=== PATIENT | female | born 1935 | race Caucasian/White ===

== ENCOUNTER → 2018-05-21 11:41 | Outpatient (CLI) | payer MEDICARE, SELFPAY ==
--- NOTE | 2018-05-21 | DI.MG.S_ITS ---
BILATERAL DIGITAL SCREENING MAMMOGRAM 3D/2D WITH CAD: 05/21/2018 CLINICAL: Routine screening. Comparison is made to exams dated: 12/09/2016 mammogram, 12/03/2015 mammogram, and 12/01/2014 mammogram - [facility]. The tissue of both breasts is heterogeneously dense. This may lower the sensitivity of mammography. Current study was also evaluated with a Computer Aided Detection (CAD) system. No significant masses, calcifications, or other findings are seen in either breast. There has been no significant interval change. IMPRESSION: NEGATIVE There is no mammographic evidence of malignancy. A 1 year screening mammogram is recommended. This exam was interpreted at Station ID: [id number]. NOTE: For mammograms, a report in lay terms will be sent to the patient. Approximately 15% of breast malignancies will not be visualized mammographically. In the management of a palpable breast mass, a negative mammogram must not discourage biopsy of a clinically suspicious lesion. Electronically Signed By: Francisca ewst/phill:05/21/2018 14:52:28 copy to: ELIAS NICOLE letter sent: Normal Exam ACR BI-RADS Category 1: Negative 3341F
== END ==
PROVIDERS: Family Provider Physician Assistant; PCP Physician Assistant; Visit Provider Physician Assistant
DX: Z12.31 Encounter for screening mammogram for malignant neoplasm of breast (principal)
CPT/HCPCS: 77063; 77067

== ENCOUNTER → 2019-05-24 13:01 | Outpatient (CLI) | payer MEDICARE, SELFPAY ==
--- NOTE | 2019-05-24 | DI.MG.S_ITS ---
BILATERAL DIGITAL SCREENING MAMMOGRAM 3D/2D WITH CAD: 05/24/2019 CLINICAL: Routine screening. Comparison is made to exams dated: 05/21/2018 mammogram, 12/09/2016 mammogram, 12/03/2015 mammogram, 12/01/2014 mammogram, and 11/06/2013 mammogram - [facility]. The tissue of both breasts is heterogeneously dense. This may lower the sensitivity of mammography. Current study was also evaluated with a Computer Aided Detection (CAD) system. There is an irregular equal density focal asymmetry in the left breast at 8 o'clock anterior to middle depth. This is more prominent. There is possible architectural distortion associated with the focal asymmetry. No other significant masses, calcifications, or other findings are seen in either breast. IMPRESSION: INCOMPLETE: NEEDS ADDITIONAL IMAGING EVALUATION Focal asymmetry with possible architectural distortion in the left breast is indeterminate. Additional views as well as additional views with possible ultrasound are recommended. This exam was interpreted at Station ID: [id number]. NOTE: For mammograms, a report in lay terms will be sent to the patient. Approximately 15% of breast malignancies will not be visualized mammographically. In the management of a palpable breast mass, a negative mammogram must not discourage biopsy of a clinically suspicious lesion. Electronically Signed By: Ty Braun M.D. slc/:05/24/2019 16:41:59 copy to: ELIAS NICOLE letter sent: Additional Imaging Needed ACR BI-RADS Category 0: Incomplete 3340F
== END ==
PROVIDERS: PCP Student in an Organized Health Care Education/Training Program; Visit Provider Student in an Organized Health Care Education/Training Program
DX: Z12.31 Encounter for screening mammogram for malignant neoplasm of breast (principal)
CPT/HCPCS: 77063; 77067

== ENCOUNTER → 2019-06-14 08:28 | Outpatient (CLI) | payer MEDICARE, SELFPAY ==
--- NOTE | 2019-06-14 | DI.US.S_ITS ---
LIMITED ULTRASOUND OF LEFT BREAST AND AXILLA: 06/14/2019 CLINICAL: Additional evaluation requested from prior study. Comparison is made to exams dated: 06/14/2019 mammogram, 05/24/2019 mammogram, 05/21/2018 mammogram, 12/09/2016 mammogram, and 12/03/2015 mammogram - [facility]. Color flow and real-time ultrasound of the left breast 9 o'clock, and axilla regions were performed on the areas of interest. There is a 0.8 cm x 0.6 cm x 0.8 cm oval mass with a spiculated margin in the left breast at 9 o'clock posterior depth. This oval mass is hypoechoic with posterior acoustic shadowing. This correlates with mammography findings. Color flow imaging demonstrates that there is vascularity present. No significant abnormalities were seen sonographically in the left axilla. No lymphadenopathy by size criteria. IMPRESSION: HIGHLY SUGGESTIVE OF MALIGNANCY The 0.8 cm x 0.6 cm x 0.8 cm oval mass in the left breast is highly suggestive of malignancy. An ultrasound guided biopsy is recommended. The findings were discussed with the patient at the conclusion of the study by Dr. Winters. This exam was interpreted at Station ID: [id number]. Electronically Signed By: José pena/:06/14/2019 14:54:03 letter sent: Biopsy Required Ultrasound BI-RADS: 5 Highly suggestive of malignancy
--- NOTE | 2019-06-14 | DI.MG.S_ITS ---
UNILATERAL LEFT DIGITAL DIAGNOSTIC MAMMOGRAM 3D/2D WITH ADDITIONAL VIEWS: 06/14/2019 CLINICAL: Additional evaluation requested from prior study. Comparison is made to exams dated: 05/24/2019 mammogram, 05/21/2018 mammogram, and 12/09/2016 mammogram - [facility]. The tissue of left breast is heterogeneously dense. This may lower the sensitivity of mammography. There is a 0.8 cm irregular equal density focal asymmetry with a spiculated and indistinct margin in the left breast at 9 o'clock middle depth. No other significant masses or calcifications are seen in the breast. IMPRESSION: INCOMPLETE: NEEDS ADDITIONAL IMAGING EVALUATION The 0.8 cm irregular equal density focal asymmetry in the left breast is indeterminate. An ultrasound is recommended. This exam was interpreted at Station ID: [id number]. NOTE: For mammograms, a report in lay terms will be sent to the patient. Approximately 15% of breast malignancies will not be visualized mammographically. In the management of a palpable breast mass, a negative mammogram must not discourage biopsy of a clinically suspicious lesion. Electronically Signed By: José pena/phill:06/14/2019 09:15:49 ACR BI-RADS Category 0: Incomplete 3340F
== END ==
PROVIDERS: PCP Student in an Organized Health Care Education/Training Program; Visit Provider Student in an Organized Health Care Education/Training Program
DX: R92.8 Other abnormal and inconclusive findings on diagnostic imaging of breast (principal); N63.20 Unspecified lump in the left breast, unspecified quadrant; M85.852 Other specified disorders of bone density and structure, left thigh; Z78.0 Asymptomatic menopausal state; E07.9 Disorder of thyroid, unspecified; Z87.891 Personal history of nicotine dependence
CPT/HCPCS: 76642; 77065; 77080; G0279

== ENCOUNTER → 2019-06-25 08:42 | Outpatient (CLI) | payer MEDICARE, SELFPAY ==
--- NOTE | 2019-06-25 | DI.US.S_ITS ---
ULTRASOUND GUIDED BIOPSY LEFT BREAST USING VACUUM DEVICE WITH MARKING DEVICE INSERTED AND POST ULTRASOUND IMAGIN06/25/2019 CLINICAL: Left breast mass. PATIENT CONSENT: Risks (minor bleeding, infection, vasovagal reaction and repeat procedure), benefits and alternatives were explained to the patient and written informed consent was obtained. Correlation is made to exams dated: 06/14/2019 ultrasound, 06/14/2019 mammogram, 05/24/2019 mammogram, and 05/21/2018 mammogram - [facility]. An ultrasound guided biopsy using real-time ultrasound was performed for the concerning 0.8 cm x 1 cm x 0.9 cm taller than wide circumscribed spiculated irregular shaped solid mass located in the left breast at 3 o'clock middle depth. This was described on the previous mammography and ultrasound reports. The skin was prepped in the usual manner. Local anesthetic was administered to the access site. A skin nakia was made in the breast. The abnormality was approached from the lateral aspect. A 13 gauge biopsy needle was placed adjacent to the abnormality under ultrasound guidance. Once the needle was documented to be in the correct location, seven specimens were obtained using the Mammotome biopsy system. The patient received additional local anesthetic during the procedure. A Vision clip was inserted into the biopsy cavity. A skin closure strip and a sterile dressing were applied to the access site. Post procedure ultrasound imaging demonstrates the location device at the targeted area and partial removal of the abnormality. The specimens were sent to the laboratory for pathological analysis. IMPRESSION: ULTRASOUND GUIDED BIOPSY MALIGNANT Ultrasound guided biopsy of the 0.8 cm x 1 cm x 0.9 cm taller than wide solid mass in the left breast at 3 o'clock middle depth was successful. 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 Pathology results are concordant with imaging findings. The patient will be returned for post-marker placement mammogram in several days. The mammography equipment was unable to obtain a diagnostic image of the site of biopsy due to a technical issue at completion of the exam. This exam was interpreted at Station ID: [id number]. Ultrasound guided biopsy of the 0.8 cm x 1 cm x 0.9 cm taller than wide solid mass in the left breast at 3 o'clock middle depth was successful. This exam was interpreted at Station ID: [id number]. Artur Mitchell M.D. [facility],/:06/28/2019 16:37:32
--- NOTE | 2019-06-25 | PATH_ITS ---
[facility] Accession Number: [id number] . 01 Material submitted: . breast - LEFT BREAST MASS 9:00 5 CM FN . 01 Clinical history: . MASS LEFT BREAST . 02 Diagnosis: Left Breast Mass at 9 o'clock, 5 cm from Nipple: Invasive mammary carcinoma with the following characteristics. Tumor size: At least 3 mm in greatest length. 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 Histologic grade: Intermediate grade (2 of 3). Modified Salmeron-Leonard score: 6 of 9. Tubular score: 3 of 3. Nuclear score: 2 of 3 Mitotic score: 1 of 3. In situ carcinoma: One minute focus (less than 1 mm) of atypical lobular hyperplasia / LCIS. Lymphovascular invasion: Not identified. Estrogen receptor, progesterone receptor and HER-2 biomarkers: Please see immunohistochemistry study table. [facility] 06/27/2019 1724 Local . 02 Comment: Dr. Espinoza discussed results with Christianne Ndiaye P.A.-C, on 06-26-19 at approximately 3:55 p.m. . 02 Electronically signed: . Leonila Perales MD, Pathologist NPI- [id number] . 01 Gross description: . Received one formalin-filled container labeled with the patient's name and designated left breast mass 9 o'clock 5 cm FN. The specimen is received with a plastic filter in container, sample loose in container and consists of multiple yellow-ray portions of cylindrical-shaped tissue which range in size from 0.1 x 0.1 x 0.1 cm to 0.9 x 0.2 x 0.2 cm. The specimen is filtered and entirely submitted in one cassette. Collection date: 06/25/2019. Collection time per container: 9:33. Total fixation time: 12 hours, up to 24. ([id number]) /SUNNI 06/26/2019 0250 Local . 02 Microscopic: . E-cadherin immunohistochemistry study was performed. The control shows appropriate reactivity. . RESULTS: E-cadherin: Negative, consistent with infiltrating lobular carcinoma. . . CAP BREAST BIOMARKER REPORTING TEMPLATE: . Estrogen Receptor (ER) Status: Positive (greater than 90%) Average intensity of staining: Strong intensity. Primary antibody: SP1 Progesterone Receptor (PgR) Status: Positive (greater than 90%) Average intensity of staining: Strong intensity. Primary antibody (1E2): Negative (1+) HER2 (by immunohistochemistry): Percentage of cells with uniform intense complete membrane staining: Primary antibody: 4B5 HER2 (ERBB2) (by in situ hybridization): . Cold Ischemia and Fixation Times: Meets requirements in the latest version of the ASCO/CAP guidelines. Testing performed on Block Number: . TECHNICAL NOTE: The scoring criteria for breast biomarkers by immunohistochemistry is based on the current ASCO/CAP guidelines (Viki et al, Arch Pathol Lab Med 2010: 134(6): 907-922 / Marques Pulido, Arch Pathol Lab Med 2014: 138(2): 241-256). Deparaffinized sections of formalin fixed tissue (along with appropriate positive controls) are incubated with the above antibody(s). Using the automated [place] stainer, tissue is incubated with the designated antibody* which is then localized by a non-biotin, dual polymer detection system. The external controls are reviewed for appropriate reactivity and found to be adequate. Results on the target cell population are indicated above. These tests have not been validated on decalcified tissue. * This test was developed and its performance characteristics determined by [employer]. It has not been cleared or approved by the U.S. Food and Drug Administration. The FDA has determined that such clearance or approval is not necessary. This test is used for clinical purposes. It should not be regarded as investigational or for research. . 02 Pathologist provided ICD-10: C50.912 . 02 CPT . 458508, L62929, 550009, 801640, [id number] Performed at: 01 [facility] [address] [place] [address] [address] [facility], [place], [place] [id number] MD José Vaughan MD Phone: [phone] Performed at: 02 [facility] [place] [id number] [place] [id number] MD Chelle Sim MD Phone: [phone]
== END ==
PROVIDERS: PCP Student in an Organized Health Care Education/Training Program; Visit Provider Student in an Organized Health Care Education/Training Program
DX: C50.812 Malignant neoplasm of overlapping sites of left female breast (principal); Z17.0 Estrogen receptor positive status [ER+]
CPT/HCPCS: 19083

== ENCOUNTER → 2019-06-28 12:48 | Outpatient (CLI) | payer MEDICARE, SELFPAY ==
--- NOTE | 2019-06-28 | DI.MG.S_ITS ---
UNILATERAL LEFT DIGITAL DIAGNOSTIC MAMMOGRAM POST-NEEDLE BIOPSY: 06/28/2019 CLINICAL: Post left breast ultrasound biopsy clip placement imaging. Comparison is made to exams dated: 06/14/2019 mammogram, 05/24/2019 mammogram, and 06/25/2019 ultrasound biopsy - [facility]. The tissue of left breast is heterogeneously dense. This may lower the sensitivity of mammography. There is a mass in the left breast at 11 o'clock middle depth. IMPRESSION: POST PROCEDURE MAMMOGRAM FOR MARKER PLACEMENT The mass in the left breast was biopsied under US guidance and a Vision post-biopsy marker was placed at the margin of the mass. It appears in expected powition by this study. Initial mammogram same day could not be obtained due to an equipment malfunction. This exam was interpreted at Station ID: [id number]. NOTE: For mammograms, a report in lay terms will be sent to the patient. Approximately 15% of breast malignancies will not be visualized mammographically. In the management of a palpable breast mass, a negative mammogram must not discourage biopsy of a clinically suspicious lesion. Electronically Signed By: Artur Mckeon M.D. [facility]/:06/28/2019 15:23:29 ACR BI-RADS Category Post-procedure mammogram for marker placement
== END ==
PROVIDERS: PCP Student in an Organized Health Care Education/Training Program; Visit Provider Student in an Organized Health Care Education/Training Program
DX: R92.8 Other abnormal and inconclusive findings on diagnostic imaging of breast (principal)
CPT/HCPCS: 77065

== ENCOUNTER → 2020-03-12 09:39 | Outpatient (CLI) | payer MEDICARE, SELFPAY ==
--- NOTE | 2020-03-12 | DI.US.S_ITS ---
LIMITED ULTRASOUND OF LEFT BREAST AND AXILLA: 03/12/2020 CLINICAL: Patient returns today to evaluate focal asymmetries in the left breast/axilla. Comparison is made to exams dated: 03/12/2020 mammogram, 06/28/2019 mammogram, 06/25/2019 ultrasound biopsy, 06/14/2019 ultrasound, 06/14/2019 mammogram, and 05/24/2019 mammogram - [facility]. Color flow and real-time ultrasound of the left breast 9-11 o'clock, and axilla regions were performed. Mae scale images of the real-time examination were reviewed. There is a benign 2.7 cm x 1.4 cm x 1.2 cm curvilinear post-surgical scar with a circumscribed margin in the left breast at 10 o'clock 5 cm from the nipple. This oval post-surgical scar is heterogeneously echogenic with a well-defined boundary. This correlates as palpated and with mammography findings. Color flow imaging demonstrates that there is no vascularity present. No mass in the left axilla at the site of spiculated asymmetry. No enlarged lymph nodes. The patient denies skin changes, pain, or palpable abnormality at this site. IMPRESSION: PROBABLY BENIGN 1) A 2.7 cm curvilinear post-surgical scar corresponding to the palpable abnormality in the left breast at 10 o'clock is benign. 2) No mass in the left axilla at the site of spiculated asymmetry seen on mammogram. This is probably benign and correlates to the axillary scar from lymph node resection. -A short term follow-up left breast diagnostic mammogram and possible ultrasound in 3 months is recommended. Exam findings were discussed with the patient over the phone. Findings were also explained to the patient by the veterinary surgery technologist. This exam was interpreted at Station ID: [id number]. Electronically Signed By: Ty Braun M.D. [facility]/:03/12/2020 12:15:10 copy to: LALI BACH letter sent: Followup Recommended Ultrasound BI-RADS: 3 Probably benign
--- NOTE | 2020-03-12 | DI.MG.S_ITS ---
BILATERAL DIGITAL DIAGNOSTIC MAMMOGRAM 3D/2D POST LUMPECTOMY: 03/12/2020 CLINICAL: Left breast cancer. Comparison is made to exams dated: 06/28/2019 mammogram, 06/14/2019 mammogram, 05/24/2019 mammogram, 05/21/2018 mammogram, and 12/09/2016 mammogram - [facility]. The tissue of both breasts is heterogeneously dense. This may lower the sensitivity of mammography. There is a new irregular equal density asymmetry with a spiculated margin in the left breast posterior depth superior region seen on the mediolateral oblique view only. This is seen in additional views. There also is an equal density focal asymmetry in the left breast at 11 o'clock middle depth. This correlates as palpated. No other significant masses, calcifications, or other findings are seen in either breast. IMPRESSION: INCOMPLETE: NEEDS ADDITIONAL IMAGING EVALUATION The new irregular equal density asymmetry in the left breast posterior depth superior region seen on the mediolateral oblique view only is indeterminate. A targeted ultrasound is recommended and will immediately follow. The equal density focal asymmetry in the left breast at 11 o'clock middle depth resembles a post-surgical scar and is indeterminate. A targeted ultrasound is recommended and will immediately follow. This exam was interpreted at Station ID: [id number]. NOTE: For mammograms, a report in lay terms will be sent to the patient. Approximately 15% of breast malignancies will not be visualized mammographically. In the management of a palpable breast mass, a negative mammogram must not discourage biopsy of a clinically suspicious lesion. Electronically Signed By: Ty Braun M.D. slc/:03/12/2020 11:39:12 copy to: LALI BACH ACR BI-RADS Category 0: Incomplete 3340F
== END ==
PROVIDERS: PCP Student in an Organized Health Care Education/Training Program; Referring Provider Internal Medicine Hematology & Oncology; Visit Provider Internal Medicine Hematology & Oncology
DX: R92.8 Other abnormal and inconclusive findings on diagnostic imaging of breast (principal); L90.5 Scar conditions and fibrosis of skin; Z85.3 Personal history of malignant neoplasm of breast
CPT/HCPCS: 76642; 77066; G0279

== ENCOUNTER 2020-10-22 15:22 | Emergency (ER) | payer OTHER, SELFPAY ==
[2020-10-22] VITALS (7 sets, daily range): BP systolic 141–186; BP diastolic 77–91; PULSE 68–85; RESP 15–16; TEMP 36.7; O2SAT 95–98; BMI 28.2
[2020-10-22] MEDS: ACETAMINOPHEN 325 MG TABLET 975 MG PO (17:17)
--- NOTE | 2020-10-22 17:39 | ED.HEATRA ---
HPI - Head Injury General Chief complaint: Head Injury Stated complaint: fall hiking, hit head, bleeding Time Seen by Provider: 10/22/20 17:13 Source: patient Mode of arrival: Ambulatory Limitations: no limitations History of Present Illness HPI Narrative: Patient is a 85-year-old very nice [place] female who presents after a ground level fall after hiking 7 miles today. She tripped and fell hitting her head. No loss of consciousness nausea or vomiting numbness tingling or weakness. She has a large laceration on her forehead. She is not on any anti-platelet or anticoagulation medication. She denies any neck pain. She did hit her face but she denies any nose pain or visual changes. She is having a slight headache MD Complaint: head injury Onset (ago): hour(s) Mechanism of Injury: fall Place: outdoors Loss of Consciousness: no Location of injury: frontal Severity: moderate Related Data Home Medications Medication Instructions Recorded Confirmed CALCIUM CARBONATE (#CALCIUM) 500 mg PO #0 06/09/11 Fish Oil (#OMEGA 3) 1,000 mg PO #0 06/09/11 IBUPROFEN (#MOTRIN / ADVIL) 200 mg PO PRN #0 06/09/11 MULTIVITAMIN (#MULTIPLE VITAMINS) 1 cap PO QDAY #0 06/09/11 tramadol 50 mg PO PRN #0 07/21/11 Allergies Allergy/AdvReac Type Severity Reaction Status Date / Time Penicillins Allergy Verified 10/22/20 15:54 Review of Systems Review of Systems Narrative: GENERAL: Denies chills, fatigue, malaise, fever, sweats, travel HEENT: Denies sinus pain, ear pain, sore throat, difficulty swallowing, neck pain RESPIRATORY: Denies dyspnea, cough, wheezing, hemoptysis, sputum. CARDIOVASCULAR: Denies chest pain, palpitations, orthopnea, edema GASTROINTESTINAL: Denies nausea, vomiting, abdominal pain, diarrhea, constipation, melena. : Denies dysuria, frequency, incontinence, hematuria, urinary retention, flank pain. MUSCULOSKELETAL: Denies weakness, joint pain, or bony pain SKIN: Frontal laceration NEUROLOGIC: + closed head injury Denies weakness, dizziness, headache, numbness, change in speech, confusion PSYCHIATRIC: No concerning psychosocial issues. 12 point review of systems is negative except for those stated above and HPI Patient History Social History Smoking Status: Unknown if ever smoked Smoking Status: Unknown if ever smoked alcohol intake frequency: holidays/special occasions only Substance Use Type: does not use Exam Initial Vital Signs Initial Vital Signs: Vital Signs Temperature 98.0 F 10/22/20 15:50 Pulse Rate 85 10/22/20 15:50 Respiratory Rate 15 10/22/20 15:50 Blood Pressure 154/91 H 10/22/20 15:50 Pulse Oximetry 96 10/22/20 15:50 GENERAL: Alert pleasant 85-year-old female and in no acute distress. HEENT: Head atraumatic,EOMI, pupils reactive, face symmetric, moist mucous membranes NECK: No vertebral step-offs tenderness CARDIOVASCULAR: Regular rate and rhythm without murmurs, rubs or gallops. RESPIRATORY: Breath sounds equal bilaterally, no wheezes rales or rhonchi. EXTREMITIES: Normal range of motion, no clubbing or edema. Neurovascularly intact Right lower extremity contusion noted on anterior todd no gross bony deformities knee is stable NEUROLOGICAL: Alert and oriented x4.Normal gait and speech. Cranial nerves II through XII grossly intact. Integrated Circuits Inspector strength equal bilaterally SKIN; large central laceration, bone noted Procedures Laceration Repair Laceration 1: Site: scalp Side (If applicable): left Size (cm): 7 Description: linear Depth: simple, single layer Local Anesthetic: lidocaine 1% and with epi Amount of anesthesia used (mL): 10 Pre-repair: wound explored, irrigated extensively and deep structures intact Skin layer closed with: nylon Size (cm): 4-0 Number of sutures: 9 Scores GCS Wilbur coma scale eye opening: Spontaneous Wilbur coma scale verbal response: Orientated Wilbur coma scale motor response: Obey commands Campbell coma scale total score: 15 Course Orders Ordered: ED Orders 10/22/20 17:44 CT cervical spine wo con Stat CT head/brain wo con Stat Discontinued Medications Acetaminophen (Acetaminophen 325 Mg Tablet) 975 mg PO NOW ONE Stop: 10/22/20 17:14 Last Admin: 10/22/20 17:17 Dose: 975 mg Documented by: MMINOR Diphtheria/Tetanus/Acell Pertussis (Tet,Diph,Pertuss(Acell),Vac/Pf 0.5 Ml Syringe) 0.5 ml IM .ONCE ONE Stop: 10/22/20 17:45 Last Admin: 10/22/20 17:56 Dose: Not Given Documented by: MMINOR Lidocaine/Epinephrine (Lidocaine 1% W/Epi) 1 ml SUBCUT NOW ONE Stop: 10/22/20 17:45 Last Admin: 10/22/20 17:57 Dose: 1 ml Documented by: MMINOR Vital Signs Vital signs: Vital Signs - 8 hr 10/22/20 15:50 10/22/20 17:11 10/22/20 17:13 Temperature 98.0 F Pulse Rate 85 74 72 Respiratory Rate 15 16 Blood Pressure 154/91 H 141/77 H Pulse Oximetry 96 95 97 10/22/20 17:30 10/22/20 18:10 10/22/20 18:30 Temperature Pulse Rate 71 73 68 Respiratory Rate Blood Pressure 148/84 H Pulse Oximetry 98 97 97 10/22/20 19:26 Temperature Pulse Rate 75 Respiratory Rate Blood Pressure 186/79 H Pulse Oximetry 97 MDM - Head Injury Imaging Data CT scan - head: Radiologist's Impression: PROCEDURE: CT HEAD/BRAIN WO CON INDICATIONS: fall large laceration TECHNIQUE: Noncontrast 4.5 mm thick angled axial sections acquired from the foramen magnum to the vertex, with coronal and sagittal reformats. For radiation dose reduction, the following was used: automated exposure control, adjustment of mA and/or kV according to patient size. COMPARISON: None. FINDINGS: Image quality: Excellent. CSF spaces: Basal cisterns are patent. No extra-axial fluid collections. The ventricles are symmetric in size and shape. Brain: No intracranial bleeds or masses. There is cerebral volume loss for age, with resultant ventricular and sulcal prominence. There are periventricular and deep white matter chronic small vessel ischemic changes. There is intracranial internal carotid artery atherosclerosis. Skull and face: Calvarium and visualized facial bones appear intact, without suspicious lesions. Left frontal scalp hematoma and laceration. Single metallic screw identified in the left frontal bone of uncertain etiology. Sinuses: Visualized sinuses and mastoids are clear. IMPRESSION: No acute intracranial disease process. Dictated by: Breanna Gutierrez MD, PhD on 10/22/2020 at 18:25 CT - cervical spine: Radiologist's Impression: PROCEDURE: CT CERVICAL SPINE WO CON INDICATIONS: fall on face TECHNIQUE: Noncontrast 3 mm thick sections acquired from the skull base to the T4 level. Sagittal and coronal reformats were then constructed. For radiation dose reduction, the following was used: automated exposure control, adjustment of mA and/or kV according to patient size. COMPARISON: None. FINDINGS: Image quality: Excellent. Bones: No fractures or dislocations. Visualized superior ribs are intact. Spine degenerative disc disease and facet arthropathy. Soft tissues: Prevertebral soft tissues are normal in thickness. No paravertebral hematomas. No apical pneumothoraces. IMPRESSION: No fracture. No acute osseous lesion. If symptoms and/or clinical suspicion for pathology persists, evaluation with MRI should be considered for further assessment. Dictated by: Breanna Gutierrez MD, PhD on 10/22/2020 at 18:20 MDM Narrative Medical decision making narrative: Patient convinced she is fine and would like to go home despite having a very large frontal laceration I have convinced her to get head CT and let me fix her laceration. CTs are negative. Discharge Plan Departure Patient Disposition: Home Clinical Impression: Closed head injury, Laceration of scalp Instructions: DI for Laceration Repair, DI for Closed Head Injury Activity Restrictions/Additional Instructions: 1. Have your suture removed in 5-7 days, you may go to walk-in clinic, return to the ER or call your primary care physician. 2. No soaking in water including dishes, bathtubs, Lakes, swimming pools etc -may apply antibiotic ointment to the area twice a day to help with healing 3. Signs of infection include, but not limited to, increased redness, increased swelling, increased pain, fever and purulent drainage, if the symptoms should arise, you may need an antibiotic and you should have a reevaluation either by your primary care provider or by the emergency department. Prescriptions: No Action MULTIVITAMIN (#MULTIPLE VITAMINS) 1 cap PO QDAY Qty: 0 RF: 0 CALCIUM CARBONATE (#CALCIUM) 500 mg PO Qty: 0 RF: 0 Fish Oil (#OMEGA 3) 1,000 mg PO Qty: 0 RF: 0 IBUPROFEN (#MOTRIN / ADVIL) 200 mg PO PRN Qty: 0 RF: 0 tramadol 50 MG tablet 50 mg PO PRN Qty: 0 RF: 0 Referrals: Christianne Ndiaye PA-C [Primary Care Provider] -
--- NOTE | 2020-10-22 17:44 | DI.CT.S_ITS ---
PROCEDURE: CT CERVICAL SPINE WO CON INDICATIONS: fall on face TECHNIQUE: Noncontrast 3 mm thick sections acquired from the skull base to the T4 level. Sagittal and coronal reformats were then constructed. For radiation dose reduction, the following was used: automated exposure control, adjustment of mA and/or kV according to patient size. COMPARISON: None. FINDINGS: Image quality: Excellent. Bones: No fractures or dislocations. Visualized superior ribs are intact. Spine degenerative disc disease and facet arthropathy. Soft tissues: Prevertebral soft tissues are normal in thickness. No paravertebral hematomas. No apical pneumothoraces. IMPRESSION: No fracture. No acute osseous lesion. If symptoms and/or clinical suspicion for pathology persists, evaluation with MRI should be considered for further assessment. Dictated by: Breanna Gutierrez MD, PhD on 10/22/2020 at 18:20 Approved by: Breanna Gutierrez MD, PhD on 10/22/2020 at 18:25
--- NOTE | 2020-10-22 17:44 | DI.CT.S_ITS ---
PROCEDURE: CT HEAD/BRAIN WO CON INDICATIONS: fall large laceration TECHNIQUE: Noncontrast 4.5 mm thick angled axial sections acquired from the foramen magnum to the vertex, with coronal and sagittal reformats. For radiation dose reduction, the following was used: automated exposure control, adjustment of mA and/or kV according to patient size. COMPARISON: None. FINDINGS: Image quality: Excellent. CSF spaces: Basal cisterns are patent. No extra-axial fluid collections. The ventricles are symmetric in size and shape. Brain: No intracranial bleeds or masses. There is cerebral volume loss for age, with resultant ventricular and sulcal prominence. There are periventricular and deep white matter chronic small vessel ischemic changes. There is intracranial internal carotid artery atherosclerosis. Skull and face: Calvarium and visualized facial bones appear intact, without suspicious lesions. Left frontal scalp hematoma and laceration. Single metallic screw identified in the left frontal bone of uncertain etiology. Sinuses: Visualized sinuses and mastoids are clear. IMPRESSION: No acute intracranial disease process. Dictated by: Breanna Gutierrez MD, PhD on 10/22/2020 at 18:25 Approved by: Breanna Gutierrez MD, PhD on 10/22/2020 at 18:27
[2020-10-22] MEDS: LIDOCAINE 1% W/EPI 1 ML SUBCUT (17:57)
== END 2020-10-22 19:27 | disposition home or self-care (01) ==
PROVIDERS: Emergency Provider Emergency Medicine; PCP Student in an Organized Health Care Education/Training Program
DX: S01.81XA Laceration without foreign body of other part of head, initial encounter (principal); R51.9 Headache, unspecified; S09.90XA Unspecified injury of head, initial encounter; W19.XXXA Unspecified fall, initial encounter
CPT/HCPCS: 12002; 70450; 72125; 99284; 90715

== ENCOUNTER → 2021-04-01 12:45 | Outpatient (CLI) | payer OTHER, SELFPAY ==
--- NOTE | 2021-04-01 | DI.MG.S_ITS ---
BILATERAL DIGITAL DIAGNOSTIC MAMMOGRAM 3D/2D SHORT-TERM FOLLOW-UP: 04/01/2021 CLINICAL: Short term follow up of the left breast, due for bilateral imaging. Comparison is made to exams dated: 03/12/2020 ultrasound, 03/12/2020 mammogram, 06/28/2019 mammogram, 05/21/2018 mammogram, 06/25/2019 ultrasound biopsy, and 05/24/2019 mammogram - [facility]. The tissue of both breasts is heterogeneously dense. This may lower the sensitivity of mammography. There are stable benign post operative findings in the left breast and axilla. No significant masses, calcifications, or other findings are seen in either breast. IMPRESSION: BENIGN There is no mammographic evidence of malignancy. A 1 year screening mammogram is recommended. This exam was interpreted at Station ID: [id number]. NOTE: For mammograms, a report in lay terms will be sent to the patient. Approximately 15% of breast malignancies will not be visualized mammographically. In the management of a palpable breast mass, a negative mammogram must not discourage biopsy of a clinically suspicious lesion. Electronically Signed By: Gabriel dietrich/phill:04/01/2021 13:54:37 copy to: LALI BACH letter sent: Normal Exam ACR BI-RADS Category 2: Benign Finding(s) 3342F
== END ==
PROVIDERS: PCP Student in an Organized Health Care Education/Training Program; Referring Provider Internal Medicine Hematology & Oncology; Visit Provider Internal Medicine Hematology & Oncology
DX: R92.8 Other abnormal and inconclusive findings on diagnostic imaging of breast (principal)
CPT/HCPCS: 77066; G0279

== ENCOUNTER → 2022-04-07 11:44 | Outpatient (CLI) | payer OTHER, SELFPAY ==
--- NOTE | 2022-04-07 | DI.MG.S_ITS ---
BILATERAL DIGITAL SCREENING MAMMOGRAM 3D/2D WITH CAD: 04/07/2022 CLINICAL: Routine screening. Personal history of left breast cancer. Comparison is made to exams dated: 04/01/2021 mammogram, 03/12/2020 ultrasound, and 03/12/2020 mammogram - [facility]. The tissue of both breasts is heterogeneously dense. This may lower the sensitivity of mammography. Current study was also evaluated with a Computer Aided Detection (CAD) system. There is a stable benign focal asymmetry in the left breast. There also are benign post operative findings in the left breast. No significant masses, calcifications, or other findings are seen in either breast. There has been no significant interval change. IMPRESSION: BENIGN There is no mammographic evidence of malignancy. A 1 year screening mammogram is recommended. This exam was interpreted at Station ID: [id number]. NOTE: For mammograms, a report in lay terms will be sent to the patient. Approximately 15% of breast malignancies will not be visualized mammographically. In the management of a palpable breast mass, a negative mammogram must not discourage biopsy of a clinically suspicious lesion. Electronically Signed By: Joseph jaeger/phill:04/07/2022 14:18:28 copy to: LALI BACH letter sent: Normal Exam ACR BI-RADS Category 2: Benign Finding(s) 3342F
== END ==
PROVIDERS: PCP Student in an Organized Health Care Education/Training Program; Referring Provider Student in an Organized Health Care Education/Training Program; Visit Provider Student in an Organized Health Care Education/Training Program
DX: Z12.31 Encounter for screening mammogram for malignant neoplasm of breast (principal); Z85.3 Personal history of malignant neoplasm of breast
CPT/HCPCS: 77063; 77067

== ENCOUNTER → 2022-12-01 10:12 | Outpatient (CLI) | payer OTHER, SELFPAY | PROVIDERS: PCP Student in an Organized Health Care Education/Training Program; Referring Provider Student in an Organized Health Care Education/Training Program; Visit Provider Student in an Organized Health Care Education/Training Program | DX: Z78.0 Asymptomatic menopausal state (principal); Z13.820 Encounter for screening for osteoporosis; M85.88 Other specified disorders of bone density and structure, other site; Z92.23 Personal history of estrogen therapy | CPT/HCPCS: 77080 ==

== ENCOUNTER → 2023-04-27 13:35 | Outpatient (CLI) | payer OTHER, SELFPAY ==
--- NOTE | 2023-04-27 | DI.MG.S_ITS ---
BILATERAL DIGITAL SCREENING MAMMOGRAM 3D/2D WITH CAD: 04/27/2023 CLINICAL: Routine screening. Personal history of left breast cancer. Comparison is made to exams dated: 04/07/2022 mammogram, 04/01/2021 mammogram, and 03/12/2020 mammogram - [facility]. Both breasts are heterogeneously dense, which may obscure small masses (category c / 51-75% glandular tissue). Current study was also evaluated with a Computer Aided Detection (CAD) system. There is a stable benign focal asymmetry in the left breast. There also are benign post operative findings in the left breast. No significant masses, calcifications, or other findings are seen in either breast. There has been no significant interval change. IMPRESSION: BENIGN There is no mammographic evidence of malignancy. A 1 year screening mammogram is recommended. This exam was interpreted at Station ID: [id number]. NOTE: For mammograms, a report in lay terms will be sent to the patient. Approximately 15% of breast malignancies will not be visualized mammographically. In the management of a palpable breast mass, a negative mammogram must not discourage biopsy of a clinically suspicious lesion. Electronically Signed By: Gabriel dietrich/phill:04/27/2023 14:16:41 copy to: LALI BACH letter sent: Normal Exam ACR BI-RADS Category 2: Benign Finding(s) 3342F
== END ==
PROVIDERS: PCP Student in an Organized Health Care Education/Training Program; Referring Provider Student in an Organized Health Care Education/Training Program; Visit Provider Student in an Organized Health Care Education/Training Program
DX: Z12.31 Encounter for screening mammogram for malignant neoplasm of breast (principal); Z85.3 Personal history of malignant neoplasm of breast
CPT/HCPCS: 77063; 77067

== ENCOUNTER → 2023-07-06 11:32 | Outpatient (CLI) | payer OTHER, SELFPAY ==
--- NOTE | 2023-07-06 | DI.RAD.S_ITS ---
PROCEDURE: XR HIP W PEL IF DONE LT 2V INDICATIONS: left leg pain post fall TECHNIQUE: AP pelvis with lateral view(s) of the left hip(s). COMPARISON: None. FINDINGS: Bones: No fractures or dislocations. Pelvic ring appears intact. No suspicious bony lesions. Moderate left hip osteoarthritic degenerative change with osseous hypertrophy and mild joint space narrowing. Soft tissues: The visualized bowel gas pattern is normal. No suspicious soft tissue calcifications. Sacral neurostimulator. IMPRESSION: Moderate left hip osteoarthritis. Dictated by: Breanna Gutierrez MD, PhD on 07/06/2023 at 13:11 Approved by: Breanna Gutierrez MD, PhD on 07/06/2023 at 13:12
== END ==
PROVIDERS: PCP Student in an Organized Health Care Education/Training Program; Referring Provider Student in an Organized Health Care Education/Training Program; Visit Provider Student in an Organized Health Care Education/Training Program
DX: M16.12 Unilateral primary osteoarthritis, left hip (principal); M79.605 Pain in left leg
CPT/HCPCS: 73502

== ENCOUNTER → 2023-09-08 09:26 | Outpatient (CLI) | payer OTHER, SELFPAY ==
--- NOTE | 2023-09-08 | DI.CT.S_ITS ---
PROCEDURE: CT ABDOMEN PELVIS W CON INDICATIONS: ABDOMINAL PAIN TECHNIQUE: After the administration of oral and intravenous contrast, axial sections were acquired from the lung bases to the pubic symphysis. Coronal and sagittal reformats were performed. For radiation dose reduction, the following was used: automated exposure control, adjustment of mA and/or kV according to patient size. COMPARISON:None. FINDINGS: Image quality: Excellent. Lung bases: Lung bases are clear. Heart size is normal. Solid organs: Liver: The liver has no mass or intrahepatic biliary ductal dilatation. The portal vein and hepatic veins are patent. Biliary: The gallbladder has no gallstones, pericholecystic fluid, gallbladder wall thickening, or surrounding inflammatory change. Pancreas: The pancreas has no mass or ductal dilatation. There is no surrounding inflammation. Spleen: Normal size. There are no masses. Adrenals: No hypertrophy or nodules. Kidneys: No obstructive calculus or hydronephrosis. There is a 2.5 cm simple cyst in the right inferior pole. There is a large 8.0 x 6.2 cm cyst in the left inferior pole. No solid mass. No cystic mass. Peritoneum and bowel: The distal esophagus and stomach are normal. The small bowel has a normal caliber and appearance. The terminal ileum is normal. The large bowel has a normal caliber and appearance. The appendix is normal. No free fluid or air. Nodes and vessels: No retroperitoneal or mesenteric adenopathy by size criteria. The aorta has atherosclerosis with no aneurysmal dilatation. Miscellaneous: No abdominal wall mass or hernia. PELVIS: Genitourinary: The bladder has no wall thickening or mass. No bladder calcifications. Bones: Degenerative changes with no focal abnormality. No vertebral body compression fractures. IMPRESSION: No acute abdominal or pelvic abnormality. Dictated by: Ney Carrizales M.D. on 09/08/2023 at 12:25 Approved by: Ney Carrizales M.D. on 09/08/2023 at 12:31
== END ==
PROVIDERS: PCP Student in an Organized Health Care Education/Training Program; Referring Provider Internal Medicine; Visit Provider Internal Medicine
DX: N28.1 Cyst of kidney, acquired (principal); R10.12 Left upper quadrant pain
CPT/HCPCS: 74177

== ENCOUNTER → 2024-05-16 07:54 | Outpatient (CLI) | payer MEDICARE, SELFPAY ==
--- NOTE | 2024-05-16 | DI.MG.S_ITS ---
BILATERAL DIGITAL SCREENING MAMMOGRAM 3D/2D WITH CAD POST LUMPECTOMY: 05/16/2024 CLINICAL: Routine screening. Personal history of left breast cancer. Comparison is made to exams dated: 04/27/2023 mammogram, 04/07/2022 mammogram, and 04/01/2021 mammogram - [facility]. Both breasts are heterogeneously dense, which may obscure small masses (category c / 51-75% glandular tissue). Current study was also evaluated with a Computer Aided Detection (CAD) system. There is a stable benign focal asymmetry in the left breast. There also are benign post operative findings in the left breast. No significant masses, calcifications, or other findings are seen in either breast. There has been no significant interval change. IMPRESSION: BENIGN There is no mammographic evidence of malignancy. A 1 year screening mammogram is recommended. This exam was interpreted at Station ID: [id number]. NOTE: For mammograms, a report in lay terms will be sent to the patient. Approximately 15% of breast malignancies will not be visualized mammographically. In the management of a palpable breast mass, a negative mammogram must not discourage biopsy of a clinically suspicious lesion. Electronically Signed By: Joseph jaeger/phill:05/16/2024 13:09:46 copy to: LALI BACH letter sent: Normal Exam ACR BI-RADS Category 2: Benign Finding(s) 3342F
== END ==
PROVIDERS: PCP Student in an Organized Health Care Education/Training Program; Referring Provider Student in an Organized Health Care Education/Training Program; Visit Provider Student in an Organized Health Care Education/Training Program
DX: Z12.31 Encounter for screening mammogram for malignant neoplasm of breast (principal); Z85.3 Personal history of malignant neoplasm of breast; R92.333 Mammographic heterogeneous density, bilateral breasts
CPT/HCPCS: 77063; 77067

== ENCOUNTER → 2025-06-27 08:43 | Outpatient (CLI) | payer MEDICARE, SELFPAY ==
--- NOTE | 2025-06-27 08:44 | DI.MG.S_ITS ---
MM diagnostic mammo unilat LT: 06/27/2025. BI-RADS: 3 CLINICAL: 89-year old female for left diagnostic mammogram that is a recall from screening on 05/27/2025. No Tyrer-Cuzick risk score calculation due to the patient's personal history of breast cancer. Patient reports a history of left breast carcinoma diagnosed at age 85. Status-post left lumpectomy. PRIOR EXAMS Mammogram(s): 05/27/2025, 05/16/2024, 04/27/2023, 04/07/2022, 04/01/2021, 03/12/2020, 06/28/2019, 06/14/2019. MAMMOGRAPHY TECHNIQUE: 2D and 3D (tomosynthesis) digital mammographic views obtained, with additional images as needed for full coverage. Current study was also evaluated with a Computer Aided Detection (CAD) system. DENSITY Left: C. The breast is heterogeneously dense, which may obscure small masses. MAMMOGRAPHY FINDINGS Left: Inner Central, Anterior depth, measuring 0.4cm: There are linear coarse and round calcifications along the patient's scar which could represent evolving dystrophic calcifications in the left breast. These appear grossly similar compared to 05/16/2024, however no magnifications views were performed at that time. IMPRESSION: Left: Inner Central, Anterior depth, measuring 0.4cm * Probably Benign. RECOMMENDATIONS Left: Inner Central, Anterior depth * Six month followup with diagnostic mammography. COMMENTS: Findings and recommendations were conveyed to the patient during today's evaluation. OVERALL ASSESSMENT CATEGORY BI-RADS-3: Probably Benign. ELECTRONICALLY SIGNED: Fanny Contreras M.D. on 06/27/2025 at 12:17:24 PM PT Interpreting Station ID: [id number]
== END ==
LOC: MAMMO 08:44
PROVIDERS: PCP Student in an Organized Health Care Education/Training Program; Referring Provider Student in an Organized Health Care Education/Training Program; Visit Provider Student in an Organized Health Care Education/Training Program
DX: R92.8 Other abnormal and inconclusive findings on diagnostic imaging of breast (principal); R92.1 Mammographic calcification found on diagnostic imaging of breast; Z85.3 Personal history of malignant neoplasm of breast; R92.332 Mammographic heterogeneous density, left breast
CPT/HCPCS: 77065; G0279